=== PATIENT | female | born 1965 ===

== ENCOUNTER → 2019-01-06 | Outpatient (CLI) | payer OTHER | LOC: BMCIMAGING 15:00 | PROVIDERS: ATTEND Obstetrics & Gynecology Gynecology | DX: Z12.31 Encounter for screening mammogram for malignant neoplasm of breast (principal) ==

== ENCOUNTER → 2019-01-14 | Outpatient (CLI) | payer OTHER | LOC: BMCIMAGING 10:45 | PROVIDERS: ATTEND Obstetrics & Gynecology Gynecology | DX: R92.8 Other abnormal and inconclusive findings on diagnostic imaging of breast (principal) ==